=== PATIENT | male | born 1950 | race Caucasian/White ===

== ENCOUNTER 2020-04-28 13:00 | Outpatient (CLI) | payer BC, SELFPAY ==
--- NOTE | 2020-04-28 15:00 | NEURO_ITS ---
Impression: # Complains of left hand numbness. # Severe left Carpal Tunnel Syndrome. # Moderate right Carpal Tunnel Syndrome. # No ulnar neuropathy. # Neurogenic changes on needle exam in APB bilaterally. Nerve Conduction Studies Anti Sensory Summary Table Stim Site NR Peak (ms) P-T Amp (?V) Site1 Site2 Delta-P (ms) Dist (cm) Didier (m/s) Left Median Anti Sensory (2-3nd Digit) NO RESPONSE Wrist NR Wrist 2-3nd Digit 14.0 Wrist NR Wrist 2-3nd Digit 14.0 Right Median Anti Sensory (2-3nd Digit) Wrist 5.3 14.6 Wrist 2-3nd Digit 5.3 14.0 26 Wrist 5.3 25.9 Wrist 2-3nd Digit 5.3 14.0 26 Left Radial Anti Sensory (Base 1st Digit) Wrist 2.1 19.2 Wrist Base 1st Digit 2.1 0.0 Right Radial Anti Sensory (Base 1st Digit) Wrist 2.3 8.2 Wrist Base 1st Digit 2.3 0.0 Left Ulnar Anti Sensory (5th Digit) Wrist 3.1 22.9 Wrist 5th Digit 3.1 14.0 45 Right Ulnar Anti Sensory (5th Digit) Wrist 2.4 26.3 Wrist 5th Digit 2.4 14.0 58 Motor Summary Table Stim Site NR Onset (ms) O-P Amp (mV) Site1 Site2 Delta-0 (ms) Dist (cm) Didier (m/s) Left Median Motor (Abd Poll Brev) NO RESPONSE Wrist NR Elbow Wrist 26.0 Elbow NR Right Median Motor (Abd Poll Brev) Wrist 5.5 2.0 Elbow Wrist 4.9 28.0 57 Elbow 10.4 1.8 Left Ulnar Motor (Abd Dig Minimi) Wrist 2.7 8.5 A Elbow Wrist 5.2 31.0 60 A Elbow 7.9 7.5 Right Ulnar Motor (Abd Dig Minimi) Wrist 2.9 8.2 A Elbow Wrist 4.9 30.0 61 A Elbow 7.8 6.3 F Wave Studies NR F-Lat (ms) L-R F-Lat (ms) Left Median (Mrkrs) (Abd Poll Brev) 33.59 3.27 Right Median (Mrkrs) (Abd Poll Brev) 30.32 3.27 Left Ulnar (Mrkrs) (Abd Dig Min) 28.91 1.39 Right Ulnar (Mrkrs) (Abd Dig Min) 27.52 1.39 EMG Side Muscle Nerve Root Ins Act Fibs Amp Dur Recrt Comment Right 1stDorInt Ulnar C8-T1 Nml Nml Nml Nml Nml Right Ext Indicis Radial (Post Int) C7-8 Nml Nml Nml Nml Nml Right Ext Digitorum Radial (Post Int) C7-8 Nml Nml Nml Nml Nml Right BrachioRad Radial C5-6 Nml Nml Nml Nml Nml Right PronatorTeres Median C6-7 Nml Nml Nml Nml Nml Right Abd Poll Brev Median C8-T1 Nml Nml Decr >12ms Reduced Left 1stDorInt Ulnar C8-T1 Nml Nml Nml Nml Nml Left Ext Indicis Radial (Post Int) C7-8 Nml Nml Nml Nml Nml Left Ext Digitorum Radial (Post Int) C7-8 Nml Nml Nml Nml Nml Left BrachioRad Radial C5-6 Nml Nml Nml Nml Nml Left PronatorTeres Median C6-7 Nml Nml Nml Nml Nml Left Abd Poll Brev Median C8-T1 Nml Nml Decr >12ms Reduced MTDD
== END 2020-04-28 13:01 | disposition home or self-care (01) ==
PROVIDERS: PCP Family Medicine; Visit Provider Physician Assistant
DX: G56.03 Carpal tunnel syndrome, bilateral upper limbs (principal)
CPT/HCPCS: 95886; 95911

== ENCOUNTER → 2020-05-31 00:45 | Outpatient (CLI) | payer BC, SELFPAY ==
[2020-05-31 20:24] LABS: SARS-CoV-2 RNA PCR Negative
== END ==
PROVIDERS: PCP Family Medicine; Visit Provider Plastic Surgery
DX: Z01.812 Encounter for preprocedural laboratory examination (principal); Z20.822 Contact with and (suspected) exposure to COVID-19
CPT/HCPCS: C9803; U0003; U0005

== ENCOUNTER 2020-06-01 13:06 | Outpatient (CLI) | payer BC, SELFPAY ==
--- NOTE | 2020-06-01 13:15 | ECG_ITS ---
Measurements Intervals [place] Rate: 70 P: 53 SC: 187 QRS: -9 QRSD: 94 T: 47 QT: 376 QTc: 408 Interpretive Statements SINUS RHYTHM INCOMPLETE RIGHT BUNDLE BRANCH BLOCK BORDERLINE R WAVE PROGRESSION, ANTERIOR LEADS BASELINE ARTIFACT- I, II, III, AVR, AVF, V5-V6 BORDERLINE ECG Electronically Signed On 06-01-2020 14:01:23 CDT by Tristin De Jesus D.O.
== END 2020-06-01 13:07 | disposition home or self-care (01) ==
LOC: ANHSURGERY 13:09
PROVIDERS: PCP Family Medicine; Visit Provider Plastic Surgery
DX: Z01.818 Encounter for other preprocedural examination (principal); I10 Essential (primary) hypertension
CPT/HCPCS: 93005

== ENCOUNTER 2020-06-03 01:16 | Day surgery (SDC) | payer BC, SELFPAY ==
[2020-05-31 09:28] VITALS: BMI 36.9
--- NOTE | 2020-06-02 13:32 | WPDANESEPPF ---
Anes - Initial Pre Proc Eval Procedure: Operation Date: 06/03/20 07:30 Proposed Procedures p Bilateral Open Carpal Tunnel Release - Marcell Tee MD Date/Time: 06/02/20 13:32 Surgeon: Marcell Tee MD Pre Op Diagnosis: Bilateral Carpal Tunnel Syndrome Patient Data Age: 69 Gender: M Height: 5 ft 9 in Weight: 113.5 kg Allergies Allergy/AdvReac Type Severity Reaction Status Date / Time codeine AdvReac Unknown Nausea Verified 05/31/20 09:25 Home Medications Medication Instructions Recorded Confirmed Type atorvastatin 20 mg tablet 20 mg PO DAILY #90 tablet 08/12/19 05/31/20 Rx irbesartan 150 mg tablet 150 mg PO DAILY #90 tablet 08/12/19 05/31/20 Rx meloxicam 7.5 mg tablet 7.5 mg PO DAILY #90 tablet 10/06/19 05/31/20 Rx bupropion HCl 150 mg 24 hr tablet, 150 mg PO QAM #90 tablet 02/09/20 05/31/20 Rx extended release phentermine mg 05/31/20 History topiramate 05/31/20 History topiramate 05/31/20 05/31/20 History Patient hx anesthesia problems: none Family hx anesthesia problems: none PMFSH Past Medical History Medical History (Updated 06/02/20 @ 13:33 by Dilan Vanessa MD) Hepatitis C antibody test negative (~08/2016) History of prostate cancer Hypertension Mixed hyperlipidemia Surgical History Surgical History H/O colonoscopy (~11/2009) H/O lumbar discectomy (~2013) H/O prostatectomy (~2013) Family History Family History Sibling Depression Family history of malignant neoplasm of breast in first degree relative Grandparent Carcinoma of colon Father Malignant neoplasm of prostate Mother Family history of malignant neoplasm of breast in first degree relative Social History Social History Smoking status: Never smoker Alcohol intake: current Alcohol use details: RARE Substance use: never Substance use type: does not use Living arrangements: with family Spiritual care concerns: No Anes - Eval Final PreProcedure Day of Procedure 06/02/20 13:32 Patient weight: obese Heart: regular rate and rhythm Lungs: clear to auscultation Airway: Mallampati scale class III Neurological: alert and oriented Last oral intake: >/= 8 hours ASA classification: III Emergent: no Anesthetic plan: proceed Anesthesia type and monitoring: general GIVS and standard monitoring Informed Consent: The patient's anesthetic plan and its attendant risks and benefits were discussed with the patient/family/POA. Questions were solicited and answers provided to the satisfaction of the patient/family/POA.
[2020-06-03 06:30] VITALS: BP 113/75; PULSE 90; RESP 18; TEMP 35.6; O2SAT 99
[2020-06-03] MEDS: LACTATED RINGERS 1,000 ML 30 ML IV CONT (06:45)
--- NOTE | 2020-06-03 07:00 | WPDHPUPDATE1 ---
History and Physical Update Update Date/Time: 06/03/20 07:00 History and Physical has been reviewed, including an updated exam of the patient. There are NO changes in the patient's condition. Risks, benefits, and alternatives have been discussed and questions answered. Patient agrees to proceed with procedure.
[2020-06-03] MEDS: LIDO 1%/EPINEPHRINE 1:100,000 50 ML VIAL 12 ML INFILTRATE (07:21)
[2020-06-03] MEDS: BACITRACIN OINTMENT 15 GM TUBE 1 APPLIC TOPICAL (07:54)
[2020-06-03 08:23] VITALS: BP 136/61; PULSE 70; RESP 16; O2SAT 96
--- NOTE | 2020-06-03 08:24 | P.OPB_ITS ---
Procedure Note - Brief Procedure Note - Brief Date of procedure: 06/03/20 Pre-op diagnosis: Bilateral Carpal Tunnel Syndrome Post-op diagnosis: same Procedure performed: B OCTR Anesthesia: MAC Surgeon: Marcell Tee MD Audit Associate: Shira Ngo Estimated blood loss (mL): 1 Pathology: none sent Complications: No immediate complications Condition: stable Disposition: same day
--- NOTE | 2020-06-03 08:26 | PM.PROC ---
Procedure Note - Detailed Date of procedure: 06/03/20 Pre-op diagnosis: Bilateral Carpal Tunnel Syndrome Post-op diagnosis: same Procedure performed: Bilateral open carpal tunnel release Description of procedure: The 2 hands were marked on the patient in the holding area. He was taken to the operating room and placed supine on the operating table. Time-out was held and confirmed. He was given IV sedation as extremities were prepped and draped in the usual fashion. Attention was turned to the right side. The marking was reconfirmed in the site locally infiltrated with 1% lidocaine with epinephrine. The tourniquet was inflated to 250 mmHg. The incision was made as marked and dissected bluntly through the subcutaneous tissue to the palmar aponeurosis. This and the transverse carpal ligament were incised with a 15 blade. The ligament was divided distally and proximally to completely release it. There was no unusual anatomy noted. The skin was closed with interrupted 4-0 nylon suture in a small bandage applied and the tourniquet was released. Attention was turned to the left side. Site had already been marked and infiltrated with lidocaine. The tourniquet was inflated to 250 mmHg. An incision was made as marked and dissection was carried bluntly through the subcutaneous tissue to the palmar aponeurosis. This and the carpal ligament were incised with a 15 blade. Under 3 point retraction the ligament was divided distally and proximally to completely release it. The skin wound was closed with interrupted 4-0 nylon suture. The tourniquet was released as the bandage was applied. He is discharged from the operating room in stable condition. Has a prescription for hydrocodone 5/325 10. Anesthesia: MAC Surgeon: Marcell Tee MD Freight Representative: Shira Ngo Pathology: none sent Complications: No immediate complications Condition: stable Disposition: same day
[2020-06-03 08:50] VITALS: BP 128/66; PULSE 60; RESP 16; O2SAT 95
[2020-06-03 09:10] VITALS: BP 146/67; PULSE 55; RESP 16
== END 2020-06-03 09:21 | disposition home or self-care (01) ==
PROVIDERS: PCP Family Medicine; Visit Provider Plastic Surgery
PROC: (CPT 64721; principal; 2020-06-03 07:30)
DX: G56.03 Carpal tunnel syndrome, bilateral upper limbs (principal); I10 Essential (primary) hypertension; E78.2 Mixed hyperlipidemia; Z85.46 Personal history of malignant neoplasm of prostate; E66.9 Obesity, unspecified; Z68.34 Body mass index [BMI] 34.0-34.9, adult
CPT/HCPCS: 64721; A9270; J2250; J2704; J3010; J7120

== ENCOUNTER 2020-07-16 15:04 | Outpatient (CLI) | payer BC, SELFPAY ==
--- NOTE | ~2020-07-16 | XR_ITS ---
EXAMINATION: XR wrist LT min 3V DATE: 07/16/2020 15:26 INDICATION: Decreased range of motion at the left wrist. TECHNIQUE: Posteroanterior, ulnar deviation, oblique, and lateral views of the left wrist were obtain ed. COMPARISON: none FINDINGS: There is widening of the scapholunate interval with disruption of the carpal arcs and severe osteoart hritis at the lunocapitate and lunohamate articulations in the midcarpal joint and advanced osteoarth ritis with bone remodeling loss of bone stock at both sides of the radioscaphoid articulation. This c onstellation of findings would be consistent with chronic tear of the scapholunate ligament and secon noemi scapholunate advanced collapse (SLAC) wrist. No fracture. Additional polyarticular osteoarthriti s, moderate severity at the third metacarpophalangeal joint, mild to moderate at the first carpal met acarpal joint and mild at the triscaphe and first, fourth and fifth metacarpophalangeal joints. IMPRESSION: 1. 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 Reviewed, dictated and finalized at location A. IMPRESSION: 1. Scapholunate advanced collapse (SLAC) wrist with severe/advanced osteoarthri tis at the radioscaphoid and midcarpal joints likely secondary to chronic scaph olunate ligament tear.
== END 2020-07-16 15:05 | disposition home or self-care (01) ==
LOC: ANHIMG 15:11
PROVIDERS: PCP Family Medicine; Visit Provider Plastic Surgery
DX: M19.032 Primary osteoarthritis, left wrist (principal)
CPT/HCPCS: 73110

== ENCOUNTER → 2022-08-08 09:23 | Outpatient (CLI) | payer BC, SELFPAY ==
--- NOTE | ~2022-08-08 | XR_ITS ---
Right Knee Technique: AP, lateral, and sunrise views were obtained. Clinical History: Pain Findings: No fracture or dislocation is seen. Osseous alignment is anatomic. Mild tricompartmental sp urring noted. Soft tissues are unremarkable. No joint effusion is seen. Impression: Mild tricompartmental degenerative spurring. Reviewed, dictated and finalized at [facility]. Impression: Mild tricompartmental degenerative spurring.
--- NOTE | ~2022-08-08 | XR_ITS ---
Left Knee Technique: AP, lateral, and sunrise views were obtained. Clinical History: Pain Findings: No fracture or dislocation is seen. Osseous alignment is anatomic. Minimal patellar spurrin g noted. Soft tissues are unremarkable. No joint effusion is seen. Impression: Minimal patellar spurring. Reviewed, dictated and finalized at location . Impression: Minimal patellar spurring.
== END ==
PROVIDERS: PCP Emergency Medicine; Visit Provider Nurse Practitioner Family
DX: E66.9 Obesity, unspecified (principal); M17.11 Unilateral primary osteoarthritis, right knee
CPT/HCPCS: 73562

== ENCOUNTER 2022-12-26 09:25 | Outpatient (CLI) | payer BC, SELFPAY ==
[2022-12-26 18:37] LABS: Cholesterol 248 mg/dL (0-200); HDL Direct 48 mg/dL; Triglycerides 164 mg/dL (<150)
[2022-12-26 18:48] LABS: LDL Cholesterol Direct 152 mg/dL
[2023-01-05 11:53] LABS: PSA, Free <0.01 ng/mL; PSA, Total <0.1 ng/mL (<=4.0)
== END 2022-12-26 09:26 | disposition home or self-care (01) ==
LOC: ANHGOSHLAB 09:27
PROVIDERS: PCP Emergency Medicine; Visit Provider Emergency Medicine
DX: E78.2 Mixed hyperlipidemia (principal); Z85.46 Personal history of malignant neoplasm of prostate
CPT/HCPCS: 36415; 80061; 84153; 84154

== ENCOUNTER 2023-10-17 09:25 | Outpatient (CLI) | payer BC, SELFPAY ==
[2023-10-17 13:23] LABS: Alanine Aminotransferase 38 U/L (6-50); Albumin Level 4.4 g/dL (3.5-5.1); Alkaline Phosphatase 58 U/L (38-126); Anion Gap 9 mmol/L (4-12); Aspartate Amino Transferase 42 U/L (17-59); Bilirubin,Total 0.9 mg/dL (0.2-1.3); Blood Urea Nitrogen 20 mg/dL (9-20); Calcium 9.3 mg/dL (8.4-10.2); Carbon Dioxide 29 mmol/L (22-30); Chloride 101 mmol/L (98-107); Cholesterol 193 mg/dL (0-200); Estimated Glomerular Filt Rate > 60; Glucose 99 mg/dL (65-110); HDL Direct 41 mg/dL; Potassium 4.7 mmol/L (3.4-5.0); Sodium 139 mmol/L (137-145); Triglycerides 181 mg/dL (<150)
[2023-10-17 13:35] LABS: LDL Cholesterol Direct 110 mg/dL
[2023-10-17 14:41] LABS: Prostate Specific Antigen < 0.1 ng/mL (< OR = 4.0)
== END 2023-10-17 09:26 | disposition home or self-care (01) ==
LOC: ANHGOSHLAB 09:26
PROVIDERS: PCP Emergency Medicine; Visit Provider Emergency Medicine
DX: Z12.5 Encounter for screening for malignant neoplasm of prostate (principal); E78.2 Mixed hyperlipidemia; R63.5 Abnormal weight gain; L57.0 Actinic keratosis; Z85.46 Personal history of malignant neoplasm of prostate
CPT/HCPCS: 36415; 80053; 80061; 84153; 84443; G0103

== ENCOUNTER 2024-05-16 01:18 | Day surgery (SDC) | payer MEDICARE, SELFPAY ==
[2024-05-12 12:53] VITALS: BMI 38.4
--- OUTSIDE RECORDS SUMMARY | 2024-05-16 01:21 | XMS_ITS | Clinical Summary ---
Author Organization [facility] Address [address] [place] [id number] Care Team Providers Care Slope Tender Name Role Phone Chuck Bowles MD Primary Care Provider [phone] Allergies No known active allergies Medications buPROPion SR 12 hour (WELLBUTRIN-SR) 150 mg tablet Take 150 mg by mouth daily. Active atorvastatin (LIPITOR) 10 mg tablet Take 10 mg by mouth daily. Active topiramate (TOPAMAX) 25 mg tablet Take 25 mg by mouth 2 times daily. Active Phentermine 37.5 mg Capsule Take by mouth. Active niacin (NIACOR) 250 mg tablet Take 250 mg by mouth daily. Active multivitamin (DAILY-FLORY) tablet Take 1 Tab by mouth daily. Active Active Problems Problem Noted Date Diagnosed Date Prostate cancer (185) 07/10/2013 Overview (01/06/2014): Pathologic Stage T3a Nx Mx, GS 6, preop PSA 4, postop PSA < 0.1 Urologist: Soledad Davis RP (07/10/13): bilateral GS 6 & bladder neck, +LEONEL Lt side, +PNI Lt side, -LVSI, -SV, -margins, no LNs recovered Rad Onc: Brandy Family History Relation Name Status Comments Father Mother Social History Tobacco Use Types Packs/Day Years Used Date Smoking Tobacco: Never Alcohol Use Standard Drinks/Week Comments Yes 0 (1 standard drink = 0.6 oz pur e alcohol) rarely Sex and Gender Information Value Date Recorded Sex Assigned at Not on file 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 Gender Identity Not on file Sexual Orientation Not on file Occupation Industry Job Start Date Job End Date Not on file Not on file Not on file Not on file Last Filed Vital Signs Vital Sign Reading Time Taken Comments Blood Pressure 149/76 01/08/2014 9:11 AM CDT Pulse 90 01/08/2014 9:11 AM CDT Temperature 36.1 C (97 F) 01/08/2014 9:11 AM CDT Respiratory Rate 16 07/11/2013 8:12 AM CDT Oxygen Saturation 98% 01/08/2014 9:11 AM CDT Inhaled Oxygen Concentration - - Weight 113.4 kg (250 lb) 01/15/2014 4:02 PM SWIFT TENDER Height 172.7 cm (5' 8) 01/08/2014 9:11 AM CDT Body Mass Index 38.01 01/08/2014 9:11 AM CDT Plan of Treatment Health Maintenance Due Date Last Done Comments DTAP/TDAP/TD VACCINES (1 - Tdap) 10/10/1971 COLORECTAL SCREENING 1997 Colorectal Cancer Screening 1997 FIT-DNA Q 3 years 1997 FIT/FOBT Q 1 year 1997 Flex Sig/CT Colonography Q 5 years 1997 PNEUMOCOCCAL VACCINE 50+ YEARS (1 of 1 - PCV) 10/10/19 03 ZOSTER VACCINE (1 of 2) 2002 INFLUENZA VACCINE (#1) 2023 RSV VACCINE (60+ or ) (1 - 1-dose 75+ series) 10/10/2027 Medical Devices Implanted Type Area Professor Of Astronomy Device Identifier Shelf Expiration Date Model / Serial / Lot Sealant Hemaflex [id number] - [id number] Implanted:Qty : 1 on 07/10/2013 by Charly Rowe MD at [facility] Biological N/A: Pelvis [employer] 01/10/2016 [id number] / / [id number] Insurance BCBS BLUE ACCESS/TRUE BLUE PPO Advance Directives For more information, please contact: [phone] * Full Code (Latest Code Status on File) Date Activated Date Inactivated Comments 07/10/2013 11:27 AM 07/11/2013 1:39 PM * Full Code Date Activated Date Inactivated Comments 07/10/2013 5:57 AM 07/10/2013 11:27 AM Care Teams Slope Tender Relationship Specialty Start Date End Date Chuck Bowles MD [address] [place] [id number] PCP - General Family Practice 04/09/13
[2024-05-16 11:40] VITALS: BP 154/84; PULSE 85; RESP 19; TEMP 36.2; O2SAT 99
[2024-05-16 11:42] VITALS: BMI 32.5
[2024-05-16 11:51] LABS: Glucose Point of Care 106 mg/dl (65-105)
[2024-05-16] MEDS: LACTATED RINGERS 1,000 ML 150 ML IV CONT (11:57)
--- NOTE | 2024-05-16 12:27 | P.HP_ITS ---
History of Present Illness History of Present Illness Consent: Risks, benefits, and alternatives have been discussed and questions answered. Patient agrees to proceed with procedure. Chief complaint: hx of colon polyps Narrative: Darinel Ventura is a 73 year old male with colon polyp in 2019 Review of Systems Review of Systems: All systems reviewed & are unremarkable except as noted in HPI and below PMFSH Past Medical History Medical History (Updated 03/20/24 @ 13:33 by Nieves Hines MA) Statin intolerance BMI 39.0-39.9,adult Encounter to establish care On local intermodal truck driver drug therapy History of prostate cancer Hypertension Hepatitis C antibody test negative (~08/2016) Mixed hyperlipidemia Surgical History Surgical History H/O lumbar discectomy (~2013) H/O prostatectomy (~2013) H/O colonoscopy (~11/2009) Family History Family History Sibling Depression Family history of malignant neoplasm of breast in first degree relative Grandparent Carcinoma of colon Father Malignant neoplasm of prostate Mother Family history of malignant neoplasm of breast in first degree relative Social History Social History Social History: Caffeine- occasionally Smoking status: Never smoker Alcohol intake: current Alcohol use details: socially Substance use: never Substance use type: does not use Lack of Transportation: No Lack of Food: Never True Current Housing: I Have Housing Concerned About Future Housing: No Difficulty Paying Gas/Electric Bills: No Difficulty Paying for Meds: No Currently Unemployed: YES Education: High School Diploma/GED Difficulty w/ Childcare or Family Care: No Living arrangements: with family Additional living arrangements comments: Spiritual care concerns: No Meds Home Medications and Allergies Home Medications ?Medication ?Instructions ?Recorded ?Confirmed ?Type fluorouracil 5 % topical cream 1 applic topical BID #40 grams 10/17/23 05/12/24 Rx bupropion HCl 150 mg 24 hr tablet, 150 mg PO DAILY #90 tabs 12/10/23 05/16/24 Rx extended release meloxicam 7.5 mg tablet 7.5 mg PO DAILY #30 tabs 02/04/24 05/16/24 Rx amlodipine 5 mg tablet 5 mg PO DAILY #90 tabs 03/07/24 05/16/24 Rx valsartan 320 1 tablet PO DAILY #90 tabs 03/07/24 05/16/24 Rx mg-hydrochlorothiazide 12.5 mg tablet zolpidem 10 mg tablet 10 mg PO QHS #1 tablet 03/07/24 05/16/24 Rx cholecalciferol (vitamin D3) 1,250 See Rx Instructions PO WEEKLY #10 03/19/24 05/16/24 Rx mcg (50,000 unit) capsule caps metformin 500 mg tablet 500 mg PO BID #180 tabs 03/19/24 05/16/24 Rx evolocumab 140 mg/mL subcutaneous 140 mg subcut .every 2 weeks #2 mL 04/03/24 05/12/24 Rx pen injector (Repatha SureClick) tirzepatide (weight loss) 2.5 2.5 mg subcut WEEKLY 04/24/24 05/12/24 History mg/0.5 mL subcutaneous pen injector (Zepbound) Allergies Allergy/AdvReac Type Severity Reaction Status Date / Time rosuvastatin Allergy Severe Leg Verified 05/16/24 11:37 Cramping codeine AdvReac Unknown Nausea Verified 05/16/24 11:37 Vital Signs Vital Signs - 24 hr 05/16/24 11:40 Temperature 97.2 F L Pulse Rate 85 Respiratory Rate 19 Blood Pressure 154/84 H Pulse Oximetry 99 Oxygen Delivery Room Air Exam Const: General: comfortable and no acute distress HENMT: Face/Nose/Sinus: Normal nares present Eyes: General: appearance normal, both eyes and all related structures Neck: Neck: no JVD Resp: Auscultation: clear to auscultation bilaterally Cardio: Rate: regular rate Rhythm: regular rhythm GI: Inspection: non-distended GI Palp: Yes Soft to palpation Skin: General skin exam: normal color Neuro: Speech: normal speech Extrem: General: normal to inspection Psych: Mental Status: mental status grossly normal Assessment and Plan Assessment and plan (1) Polyp of colon: Code(s): K63.5 - Polyp of colon Status: Acute Assessment and Plan: colonoscopy
--- NOTE | 2024-05-16 12:28 | WPDANESEPPF ---
Anes - Initial Pre Proc Eval Procedure: Operation Date: 05/16/24 12:30 Proposed Procedures p Colonoscopy - Marshall Lomax MD Date/Time: 05/16/24 12:28 Surgeon: Marshall Lomax MD Pre Op Diagnosis: hx of colon polyps Patient Data Age: 73 Gender: M Height: 1.75 m Weight: 100.2 kg Last Vital Signs Temp 97.2 F L 05/16/24 11:40 Pulse 85 05/16/24 11:40 Resp 19 05/16/24 11:40 BP 154/84 H 05/16/24 11:40 Pulse Ox 99 05/16/24 11:40 O2 Del Method Room Air 05/16/24 11:40 Allergies Allergy/AdvReac Type Severity Reaction Status Date / Time rosuvastatin Allergy Severe Leg Verified 05/16/24 11:37 Cramping codeine AdvReac Unknown Nausea Verified 05/16/24 11:37 Home Medications ?Medication ?Instructions ?Recorded ?Confirmed ?Type fluorouracil 5 % topical cream 1 applic topical BID #40 grams 10/17/23 05/12/24 Rx bupropion HCl 150 mg 24 hr tablet, 150 mg PO DAILY #90 tabs 12/10/23 05/16/24 Rx extended release meloxicam 7.5 mg tablet 7.5 mg PO DAILY #30 tabs 02/04/24 05/16/24 Rx amlodipine 5 mg tablet 5 mg PO DAILY #90 tabs 03/07/24 05/16/24 Rx valsartan 320 1 tablet PO DAILY #90 tabs 03/07/24 05/16/24 Rx mg-hydrochlorothiazide 12.5 mg tablet zolpidem 10 mg tablet 10 mg PO QHS #1 tablet 03/07/24 05/16/24 Rx cholecalciferol (vitamin D3) 1,250 See Rx Instructions PO WEEKLY #10 03/19/24 05/16/24 Rx mcg (50,000 unit) capsule caps metformin 500 mg tablet 500 mg PO BID #180 tabs 03/19/24 05/16/24 Rx evolocumab 140 mg/mL subcutaneous 140 mg subcut .every 2 weeks #2 mL 04/03/24 05/12/24 Rx pen injector (Chema Muñoz) tirzepatide (weight loss) 2.5 2.5 mg subcut WEEKLY 04/24/24 05/12/24 History mg/0.5 mL subcutaneous pen injector (Zepbound) Laboratory Tests 05/16/24 11:49 POC Capillary Glucose 106 H mg/dl (65-105) Patient hx anesthesia problems: none Family hx anesthesia problems: none Results Review: All pre-operative results and documents have been reviewed as part of the pre-operative evaluation. [facility] Past Medical History Medical History Statin intolerance BMI 39.0-39.9,adult Encounter to establish care On skilled nursing drug therapy History of prostate cancer Hypertension Hepatitis C antibody test negative (~08/2016) Mixed hyperlipidemia Surgical History Surgical History H/O lumbar discectomy (~2013) H/O prostatectomy (~2013) H/O colonoscopy (~11/2009) Family History Family History Sibling Depression Family history of malignant neoplasm of breast in first degree relative Grandparent Carcinoma of colon Father Malignant neoplasm of prostate Mother Family history of malignant neoplasm of breast in first degree relative Social History Social History Social History: Caffeine- occasionally Smoking status: Never smoker Alcohol intake: current Alcohol use details: socially Substance use: never Substance use type: does not use Lack of Transportation: No Lack of Food: Never True Current Housing: I Have Housing Concerned About Future Housing: No Difficulty Paying Gas/Electric Bills: No Difficulty Paying for Meds: No Currently Unemployed: YES Education: High School Diploma/GED Difficulty w/ Childcare or Family Care: No Living arrangements: with family Additional living arrangements comments: Spiritual care concerns: No Anes - Eval Final PreProcedure Day of Procedure 05/16/24 12:28 Patient weight: obese Lungs: normal air movement Airway: Mallampati scale class II Neurological: alert and oriented Last oral intake: >/= 8 hours ASA classification: III Emergent: no Anesthetic plan: proceed Anesthesia type and monitoring: general GIVS and standard monitoring Results Review: All pre-operative results and documents have been reviewed as part of the pre-operative evaluation. HTN, obesity, DM fsbs 106. Informed Consent: The patient's anesthetic plan and its attendant risks and benefits were discussed with the patient/family/POA. Questions were solicited and answers provided to the satisfaction of the patient/family/POA.
--- NOTE | 2024-05-16 12:44 | S_PTH ---
PATIENT: Darinel Ventura LOC: [facility]#:[id number] AGE/SX: 73/M ROOM: RE05/16/[address]: Marshall Lomax MD : 1950 BED: DIS: 05/16/2024 SPEC #: [id number] RECD: 05/19/24 08:30 STATUS: JIHAN MARTINEZ #: [id number] SERGIO: 05/16/24 12:[address]: Marshall Lomax DEPT: [facility] Surgical RECD BY: Rosmery Lara ENTERED: 05/19/24 08:31 SP TYPE: Surgical OTHR DR: Bal Samuels MD Tissues: A - Colon Polypectomy B - Colon Polypectomy C - Colon Polypectomy Procedures: Hematoxylin and Eosin Stain Gross and Microscopic Level 4
[2024-05-16 12:48] VITALS: BP 117/41; PULSE 72; RESP 24; O2SAT 94
[2024-05-16 12:58] VITALS: BP 149/74; PULSE 69; RESP 20; O2SAT 99
[2024-05-16 13:08] VITALS: BP 134/67; PULSE 70; RESP 20; O2SAT 97
== END 2024-05-16 13:24 | disposition home or self-care (01) ==
PROVIDERS: PCP Internal Medicine; Referring Provider Internal Medicine; Visit Provider Internal Medicine Gastroenterology
PROC: 0DJD8ZZ Inspection of Lower Intestinal Tract, Via Natural or Artificial Opening Endoscopic (ICD-10-PCS; CPT 45378; principal; 2024-05-16 12:30)
DX: Z12.11 Encounter for screening for malignant neoplasm of colon (principal); D12.0 Benign neoplasm of cecum; D12.2 Benign neoplasm of ascending colon; D12.3 Benign neoplasm of transverse colon; K57.30 Diverticulosis of large intestine without perforation or abscess without bleeding; I10 Essential (primary) hypertension; E78.2 Mixed hyperlipidemia; E66.9 Obesity, unspecified; Z68.32 Body mass index [BMI] 32.0-32.9, adult; Z79.85 Long-term (current) use of injectable non-insulin antidiabetic drugs; Z79.84 Long term (current) use of oral hypoglycemic drugs; Z79.899 Other long term (current) drug therapy; Z98.890 Other specified postprocedural states; Z98.1 Arthrodesis status; Z85.46 Personal history of malignant neoplasm of prostate; Z80.3 Family history of malignant neoplasm of breast; Z80.0 Family history of malignant neoplasm of digestive organs; Z80.42 Family history of malignant neoplasm of prostate
CPT/HCPCS: 45385; 45380; 82948; 88305; J2704; J7120